=== PATIENT | male | born 1955 | race Caucasian/White ===

== ENCOUNTER 2021-03-24 13:47 | Outpatient (REF) | payer MEDICARE, SELFPAY ==
--- NOTE | ~2021-03-24 | US_ITS ---
EXAMINATION: US EXTRACRANIAL CAROTID DUPLEX, BILATERAL CLINICAL INFORMATION: CVA. Evaluate for carotid disease COMPARISON: None TECHNIQUE: Real-time ultrasound and Doppler techniques (integrating B-mode 2-D vascular images, Doppler spectral analysis and color-flow Doppler imaging) were utilized to interrogate the extracranial carotid arteries, the vertebral arteries and proximal subclavian arteries bilaterally. The degree of stenosis is determined by criteria similar to NASCET. FINDINGS: Right Side: 1. There is no atherosclerotic plaque seen in the bifurcation/proximal ICA region. 2. The common carotid artery PSV proximally is 109 cm/s and distally 90 cm/s. 3. The proximal internal carotid artery velocities are 72 cm/s systolic and 27 cm/s diastolic. 4. The proximal external carotid artery PSV is 104 cm/s. 5. The vertebral artery shows 31 flow. 6. The subclavian artery waveforms are normal. Left Side: 1. There is no atherosclerotic plaque seen in the bifurcation/proximal ICA region. 2. The common carotid artery PSV proximally is 99 cm/s and distally 94 cm/s. 3. The proximal internal carotid artery velocities are 88 cm/s systolic and 27 cm/s diastolic. 4. The proximal external carotid artery PSV is 110 cm/s. 5. The vertebral artery shows antegrade flow. 6. The subclavian artery waveforms are normal. US/US carotid duplex BI IMPRESSION: 1. RIGHT: No hemodynamically significant stenosis. 2. LEFT: No hemodynamically significant stenosis. 3. Normal antegrade flow seen in both vertebral arteries.
== END 2021-03-24 13:48 | disposition home or self-care (01) ==
LOC: HO.US 13:47
PROVIDERS: Visit Provider Internal Medicine
DX: Z86.73 Personal history of transient ischemic attack (TIA), and cerebral infarction without residual deficits (principal)
CPT/HCPCS: 93880

== ENCOUNTER 2021-04-19 08:25 | Outpatient (REF) | payer MEDICARE, SELFPAY ==
--- NOTE | ~2021-04-19 | XR_ITS ---
EXAMINATION: XR CERVICAL SPINE CLINICAL INFORMATION: Cervicalgia. COMPARISON: None TECHNIQUE: AP, lateral, open-mouth, and bilateral oblique views of the cervical spine. FINDINGS: Straightening of the normal cervical lordosis, which may be positional or related to muscular spasm. Minimal grade 1 anterolisthesis of C4 on C5. No acute fracture. No loss of vertebral body height. Loss of intervertebral disc height with endplate osteophytes at C5-C6 and C6-C7. Bilateral neural foraminal stenosis at these levels. Unremarkable prevertebral soft tissues. Normal atlantoaxial alignment. XR/XR cervical spine 4V IMPRESSION: Straightening of the normal cervical lordosis, which may be positional or related to muscular spasm. Minimal grade 1 anterolisthesis of C4 on C5. Moderate degenerative disc disease at C5-C6 and C6-C7 with bilateral neural foraminal stenosis.
[2021-04-19 09:03] LABS: MANUAL DIFF FLAG NO
[2021-04-19 09:07] LABS: Basophils Absolute Auto 0.1 X10*3/uL (0.0-0.2); Basophils Percent Auto 0.9 % (0-2); Eosinophils Absolute Auto 0.4 X10*3/uL (0.0-0.4); Eosinophils Percent Auto 5.4 % (0-4); Hematocrit 50.5 % (42-52); Hemoglobin 17.2 g/dl (14.0-18.0); Imm Gran Abs Auto 0.02 X10*3/uL (0.00-0.03); Imm Gran Pct Auto 0.3 % (0.0-0.4); Lymphocytes Absolute Auto 1.7 X10*3/uL (1.2-4.9); Lymphocytes Percent Auto 26.1 % (20-40); Mean Corpuscular HGB Conc 34.1 g/dl (31.0-36.0); Mean Corpuscular Hemoglobin 32.9 pg (27.0-33.0); Mean Corpuscular Volume 96.6 fL (80-98); Mean Platelet Volume 9.2 fL (9.4-12.4); Monocytes Absolute Auto 0.7 X10*3/uL (0.1-1.2); Monocytes Percent Auto 9.9 % (2-11); Neutrophils Absolute Auto 3.8 X10*3/uL (2.0-8.3); Neutrophils Percent Auto 57.4 % (45-73); Platelet Count 197 X10*3/uL (160-400); Red Blood Count 5.23 X10*6/uL (4.60-5.80); Red Cell Distribution Width 13.1 % (11.0-16.0); White Blood Count 6.7 X10*3/uL (4.8-10.8)
[2021-04-19 09:36] LABS: Alanine Aminotransferase 19 U/L (0-40); Albumin Level 4.8 g/dL (3.5-5.0); Alkaline Phosphatase 52 U/L (39-117); Anion Gap 14 (12-20); Aspartate Amino Transferase 18 U/L (5-37); Bilirubin Total 0.8 mg/dL (0.0-1.0); Blood Urea Nitrogen 18 mg/dL (9-16); Calcium 9.5 mg/dL (8.4-10.2); Carbon Dioxide 27 mmol/L (22-29); Chloride 105 mmol/L (96-108); Cholesterol 168 mg/dL; Estimated Glomerular Filt Rate > 60; Glucose Random 91 mg/dL (60-115); HDL Cholesterol 64 mg/dL; LDL Cholesterol Calculated 92 mg/dl; Potassium 4.8 mmol/L (3.3-5.1); Sodium 141 mmol/L (135-145); Total Protein 7.3 g/dL (6.5-8.0); Triglycerides 64 mg/dL
== END 2021-04-19 08:26 | disposition home or self-care (01) ==
LOC: HO.LAB 08:25
PROVIDERS: PCP Internal Medicine; Visit Provider Internal Medicine
DX: M54.2 Cervicalgia (principal); E78.00 Pure hypercholesterolemia, unspecified
CPT/HCPCS: 36415; 72050; 80053; 80061; 85025

== ENCOUNTER 2021-05-11 07:21 | Outpatient (REF) | payer MEDICARE, SELFPAY ==
--- NOTE | ~2021-05-11 | MR_ITS ---
EXAMINATION: MR CERVICAL SPINE WITHOUT CONTRAST CLINICAL INFORMATION: Neck pain. COMPARISON: None TECHNIQUE: MRI of the cervical spine was obtained using routine sequences without contrast. FINDINGS: VERTEBRAL BODIES AND PARASPINAL SOFT TISSUES: There is oeripsvx-cp-lbittk disc space narrowing with a retrosubluxation at the C5-C6 level. Endplate edematous changes are also present at this level, more significant on the right side. There are no compression fractures. The marrow signal is mildly heterogeneous. There are mild posterior subluxations at the C2-C3, C3-C4 and C6-C7 levels. Significant disc space narrowing also evident at C6-C7 with endplate spurring and minimal endplate edema. The paraspinal soft tissues are normal. The vertebral artery flow-voids are maintained. The imaged lung apices are clear. CERVICOMEDULLARY JUNCTION AND VISUALIZED POSTERIOR FOSSA: The craniovertebral junction and imaged portions of the brain appear normal. No cord signal abnormality or syrinx is seen. SPINAL LEVELS: C2-C3: Mild retrosubluxation and disc bulge with endplate spurring. No central canal stenosis or foraminal encroachment. C3-C4: Retrosubluxation and disc-osteophyte complex mildly impressing upon the ventral thecal sac. No central canal stenosis. Mild left foraminal narrowing and moderate right foraminal encroachment. C4-C5: Minimal annular bulge and endplate spurring without central canal stenosis. Moderate bilateral foraminal narrowing. C5-C6: Retrosubluxation and disc-osteophyte complex with mild central canal stenosis and severe right foraminal encroachment. Additional broad-based right paracentral disc protrusion with mild caudal migration slightly impressing upon the ventral cord. Moderate left foraminal narrowing. Exuberant endplate edema lateralized to the right side. C6-C7: Retrosubluxation and shallow disc-osteophyte complex with very mild central canal stenosis and severe bilateral foraminal encroachment. C7-T1: No disc pathology. No central canal stenosis or foraminal narrowing. MR/MR cervical spine wo con IMPRESSION: Moderate endplate edematous changes lateralized more so to the right side with a retrosubluxation and moderate degenerative disc disease at the C5-C6 level. Mild central canal stenosis and severe right foraminal narrowing. Broad-based right paracentral disc protrusion with mild caudal migration slightly impressing upon the ventral cord. Moderate left foraminal narrowing. Ifzl-om-zipaprjq spondylitic changes at the C3-C4 level with moderate right foraminal narrowing and a retrosubluxation. Moderate bilateral foraminal encroachment with endplate spurring and a mild disc bulge at the C4-C5 level. Severe bilateral foraminal narrowing with moderate spondylosis at the C6-C7 level.
== END 2021-05-11 07:22 | disposition home or self-care (01) ==
LOC: HO.MRI 07:21
PROVIDERS: Visit Provider Internal Medicine
DX: M54.2 Cervicalgia (principal)
CPT/HCPCS: 72141

== ENCOUNTER 2021-11-16 07:44 | Outpatient (REF) | payer MEDICARE, SELFPAY ==
[2021-11-16 08:06] LABS: MANUAL DIFF FLAG NO
[2021-11-16 08:26] LABS: Basophils Absolute Auto 0.1 X10*3/uL (0.0-0.2); Basophils Percent Auto 0.8 % (0-2); Eosinophils Absolute Auto 0.4 X10*3/uL (0.0-0.4); Eosinophils Percent Auto 6.4 % (0-4); Hematocrit 47.6 % (42.0-52.0); Hemoglobin 15.8 g/dl (14.0-18.0); Imm Gran Abs Auto 0.01 X10*3/uL (0.00-0.03); Imm Gran Pct Auto 0.2 % (0.0-0.4); Lymphocytes Absolute Auto 2.1 X10*3/uL (1.2-4.9); Lymphocytes Percent Auto 32.9 % (20-40); Mean Corpuscular HGB Conc 33.2 g/dl (31.0-36.0); Mean Corpuscular Hemoglobin 31.9 pg (27.0-33.0); Mean Platelet Volume 9.2 fL (9.4-12.4); Monocytes Absolute Auto 0.7 X10*3/uL (0.1-1.2); Monocytes Percent Auto 11.1 % (2-11); Neutrophils Percent Auto 48.6 % (45-73); Platelet Count 190 X10*3/uL (160-400); Red Blood Count 4.96 X10*6/uL (4.60-5.80); Red Cell Distribution Width 12.9 % (11.0-16.0); White Blood Count 6.2 X10*3/uL (4.8-10.8)
[2021-11-16 08:51] LABS: Alanine Aminotransferase 14 U/L (0-40); Albumin Level 4.1 g/dL (3.5-5.0); Alkaline Phosphatase 42 U/L (39-117); Anion Gap 9 (12-20); Aspartate Amino Transferase 19 U/L (5-37); Bilirubin Total 0.6 mg/dL (0.0-1.0); Blood Urea Nitrogen 21 mg/dL (9-16); Calcium 9.1 mg/dL (8.4-10.2); Carbon Dioxide 30 mmol/L (22-29); Chloride 106 mmol/L (96-108); Estimated Glomerular Filt Rate > 60; Glucose Random 93 mg/dL (60-115); Potassium 4.4 mmol/L (3.3-5.1); Sodium 141 mmol/L (135-145); Total Protein 6.4 g/dL (6.5-8.0)
== END 2021-11-16 07:45 | disposition home or self-care (01) ==
LOC: HO.LAB 07:44
PROVIDERS: PCP Internal Medicine; Visit Provider Internal Medicine
DX: M89.49 Other hypertrophic osteoarthropathy, multiple sites (principal); Z79.1 Long term (current) use of non-steroidal anti-inflammatories (NSAID)
CPT/HCPCS: 36415; 80053; 85025

== ENCOUNTER 2022-04-18 08:27 | Outpatient (REF) | payer MEDICARE, SELFPAY ==
[2022-04-18 08:39] LABS: MANUAL DIFF FLAG NO
[2022-04-18 08:58] LABS: Basophils Absolute Auto 0.1 X10*3/uL (0.0-0.2); Basophils Percent Auto 0.9 % (0-2); Eosinophils Absolute Auto 0.5 X10*3/uL (0.0-0.4); Eosinophils Percent Auto 6.6 % (0-4); Hematocrit 47.9 % (42.0-52.0); Hemoglobin 16.4 g/dl (14.0-18.0); Imm Gran Abs Auto 0.01 X10*3/uL (0.00-0.03); Imm Gran Pct Auto 0.1 % (0.0-0.4); Lymphocytes Percent Auto 28.6 % (20-40); Mean Corpuscular HGB Conc 34.2 g/dl (31.0-36.0); Mean Corpuscular Hemoglobin 32.2 pg (27.0-33.0); Mean Corpuscular Volume 94.1 fL (80.0-98.0); Mean Platelet Volume 9.3 fL (9.4-12.4); Monocytes Absolute Auto 0.8 X10*3/uL (0.1-1.2); Monocytes Percent Auto 11.5 % (2-11); Neutrophils Absolute Auto 3.6 x10*3/uL (2.0-8.3); Neutrophils Percent Auto 52.3 % (45-73); Platelet Count 193 X10*3/uL (160-400); Red Blood Count 5.09 X10*6/uL (4.60-5.80); Red Cell Distribution Width 12.9 % (11.0-16.0)
[2022-04-18 09:18] LABS: Alanine Aminotransferase 17 U/L (0-40); Albumin Level 4.4 g/dL (3.5-5.0); Alkaline Phosphatase 46 U/L (39-117); Anion Gap 15 (12-20); Aspartate Amino Transferase 19 U/L (5-37); Blood Urea Nitrogen 16 mg/dL (9-16); Calcium 8.8 mg/dL (8.4-10.2); Carbon Dioxide 26 mmol/L (22-29); Chloride 105 mmol/L (96-108); Cholesterol 209 mg/dL; Estimated Glomerular Filt Rate > 60; Glucose Random 94 mg/dL (60-115); HDL Cholesterol 53 mg/dL; LDL Cholesterol Calculated 145 mg/dl; Potassium 4.6 mmol/L (3.3-5.1); Sodium 141 mmol/L (135-145); Total Protein 6.8 g/dL (6.5-8.0); Triglycerides 57 mg/dL
[2022-04-18 09:57] LABS: Appearance Urine CLEAR; Color Urine YELLOW; Glucose Urine UA NEG (NEG); Leukocyte Esterase Urine NEG (NEG); Nitrite Urine NEG (NEG); PH 7.5 (5.0-8.0); Urine Blood NEG (NEG); Urine Ketones NEG (NEG); Urine Protein NEG (NEG-TRACE)
== END 2022-04-18 08:28 | disposition home or self-care (01) ==
LOC: HO.LAB 08:27
PROVIDERS: PCP Internal Medicine; Visit Provider Internal Medicine
DX: E78.00 Pure hypercholesterolemia, unspecified (principal); D12.6 Benign neoplasm of colon, unspecified; R10.32 Left lower quadrant pain; R35.1 Nocturia
CPT/HCPCS: 36415; 80053; 80061; 81003; 84443; 85025

== ENCOUNTER 2022-10-27 10:42 | Outpatient (REF) | payer MEDICARE, SELFPAY ==
--- NOTE | ~2022-10-27 | XR_ITS ---
EXAMINATION: XR THORACIC SPINE CLINICAL INFORMATION: Back pain COMPARISON: None TECHNIQUE: 3 views of the thoracic spine were obtained. FINDINGS: There is no fracture or bone destruction seen and the vertebral alignment is normal. There is no disc space narrowing. There is no abnormality of the paraspinal soft tissues. XR/XR thoracic spine 3V IMPRESSION: Unremarkable examination.
== END 2022-10-27 10:43 | disposition home or self-care (01) ==
LOC: HO.XRAY 10:42
PROVIDERS: PCP Internal Medicine; Visit Provider Internal Medicine
DX: M54.6 Pain in thoracic spine (principal); G89.29 Other chronic pain
CPT/HCPCS: 72072

== ENCOUNTER 2023-06-27 07:10 | Outpatient (REF) | payer MEDICARE, SELFPAY ==
--- NOTE | ~2023-06-27 | XR_ITS ---
Examination: Pre-MRI screening orbits. Clinical indication history of foreign body in orbits. TECHNIQUE: 3 views. FINDINGS: There is no radiopaque foreign body seen in the orbits or in the facial soft tissues. Visualized paranasal sinuses and mastoid air cells are well-aerated. The soft tissues are normal. XR/XR pre mri screening IMPRESSION: No radiopaque metallic foreign body seen.
--- NOTE | ~2023-06-27 | MR_ITS ---
EXAMINATION: MR THORACIC SPINE WITHOUT CONTRAST CLINICAL INFORMATION: History of fracture of thoracic spine. COMPARISON: Plain films of the thoracic spine 10/27/2022. MRI scan of the cervical spine 05/11/2021. TECHNIQUE: MRI of the thoracic spine was obtained using routine sequences without contrast. FINDINGS: VERTEBRAL BODIES AND PARASPINAL STRUCTURES: There is anatomic alignment of the vertebral bodies. There is multilevel narrowing of intervertebral disc height with loss of signal throughout the thoracic spine. There are mild degenerative endplate contour changes with minimal edematous signal at T9-T10. There are Schmorl's nodes at multiple levels. There is minimal loss of vertebral body height of T8, similar compared to the prior study. There are a few foci of hyperintense T1 and T2 signal in multiple vertebrae, consistent with hemangiomata or focal fat. Overall, marrow signal is homogenous. The paravertebral and visualized posterior thoracic structures are unremarkable. There is a 2.9 cm cyst in the right lobe of the liver. There are cysts in the right kidney. The conus is at the level of L1. Accounting for artifact, spinal cord signal appears normal. SPINAL LEVELS: There are multilevel degenerative changes of the costovertebral junctions. Posterior disc contours appear normal throughout the thoracic spine. There is no spinal cord compression or central stenosis. The neural foramina are patent. MR/MR thoracic spine wo con IMPRESSION: 1. There are no acute fractures or subluxations. There are multilevel degenerative changes of the costovertebral junctions. 2. There is no significant spondylosis. There is no spinal cord compression or central stenosis. The neural foramina are patent. 3. There are cysts in the right lobe of the liver and in the right kidney.
== END 2023-06-27 07:11 | disposition home or self-care (01) ==
LOC: HO.MRI 07:10
PROVIDERS: PCP Internal Medicine; Visit Provider Internal Medicine
DX: M54.6 Pain in thoracic spine (principal)
CPT/HCPCS: 72146

== ENCOUNTER 2023-10-06 06:27 | Day surgery (SDC) | payer MEDICARE, SELFPAY ==
[2023-10-04 14:13] VITALS: BMI 23.2
--- NOTE | 2023-10-05 09:04 | P.CONAN_ITS ---
Documented by User: Solange Bella NP 10/05/23 09:04 HPI - Anesthesia Eval Consult details Narrative: 68yo M for Colonoscopy [facility] Past Medical History Medical History Renal calculi Surgical History Surgical History H/O colonoscopy Hx of nasal polypectomy Hx of rotator cuff surgery Hx of left inguinal hernia repair Social History Social History Patient Tobacco Use Status: Never used Tobacco Are you DNR?: No Advance Directives: No Advance Directives Information Provided: Yes Nutrition Risks: No Nutritional Risk Meds Allergies Allergy/AdvReac Type Severity Reaction Status Date / Time Seasonal Allergies Allergy Unknown Unknown Verified 10/04/23 14:11 Home Medications Medication Instructions Recorded Confirmed Last Taken Type fluticasone propionate 50 1 spray intranasal DAILY 10/04/23 10/04/23 Unknown History mcg/actuation nasal spray,suspension multivitamin 1 tab PO DAILY 10/04/23 10/04/23 Unknown History zinc acetate 25 mg (zinc) capsule 25 mg PO DAILY 10/04/23 10/04/23 Unknown History Exam Height,Weight and Vital Signs: Height 5 ft 8.5 in Weight 70.307 kg Assessment and Plan Assessment Anesthesia Assessment: Chart Reviewed Documented by User: Esther Taylor MD 10/06/23 08:20 [facility] Past Medical History Medical History Renal calculi Family History Family history of problems with anesthesia: No Surgical History Surgical History H/O colonoscopy Hx of nasal polypectomy Hx of rotator cuff surgery Hx of left inguinal hernia repair History of Problems with Anesthesia: No Social History Social History Patient Tobacco Use Status: Never used Tobacco Are you DNR?: No Advance Directives: No Advance Directives Information Provided: Yes Nutrition Risks: No Nutritional Risk Meds Allergies Allergy/AdvReac Type Severity Reaction Status Date / Time Seasonal Allergies Allergy Unknown Unknown Verified 10/04/23 14:11 Home Medications Medication Instructions Recorded Confirmed Last Taken Type fluticasone propionate 50 1 spray intranasal DAILY 10/04/23 10/04/23 Unknown History mcg/actuation nasal spray,suspension multivitamin 1 tab PO DAILY 10/04/23 10/04/23 Unknown History zinc acetate 25 mg (zinc) capsule 25 mg PO DAILY 10/04/23 10/04/23 Unknown History Exam Height,Weight and Vital Signs: Height 5 ft 8.5 in Weight 70.307 kg Vital Signs Temp Pulse Resp BP Pulse Ox O2 Del Method 10/06/23 07:06 98.1 F 66 18 138/89 96 Room Air Airway Mallampati Class: II TM Dist: >3cm Neck ROM: Full Loose/Missing/Broken Teeth: Yes (Missing tooth top right back) Heart: RRR Lungs: CTAB Assessment and Plan Assessment Anesthesia Assessment: Anesthesia Plan Discussed Final Anesthetic Review Family History of Problems with Anesthesia: No History of Problems with Anesthesia: No NPO: Yes ASA Class: I Final Preanesthetic Review: No Changes in Pt Med Stat, Meds/Allgs Chart Reviewed, Consent Obtained/Reviewed and Anes Risks/Benef Reviewed Patient Risk: Low Procedure Risk: Low Assessment/Block/Sedation in SS: Assess/Block/Sedation-SS Anesthetic Plan Anesthetic Plan: MAC: and TIVA Disposition: Standard PACU
[2023-10-06 06:38] VITALS: BMI 22.7
[2023-10-06] MEDS: Lactated Ringers 1,000 ML 100 ML IVCONT (06:46)
[2023-10-06 07:06] VITALS: BP 138/89; PULSE 66; RESP 18; TEMP 36.7; O2SAT 96
[2023-10-06 08:37] VITALS: BP 105/67; PULSE 52; RESP 16; TEMP 36.1; O2SAT 99
--- NOTE | 2023-10-06 08:40 | P.BOP_ITS ---
Brief Operative Note Date of Service: 10/06/23 Pre-op diagnosis: Screening Post-op diagnosis: other (Diverticulosis) Procedure: Colonoscopy to the cecum and TI Surgeon: Leobardo Rai MD Anesthesia: MAC Was an Electrical Sign Wirer used for this Procedure?: No Estimated blood loss (mL): 0 Pathology: none sent Condition: stable Disposition: PACU
[2023-10-06 08:52] VITALS: BP 123/68; PULSE 52; RESP 16; TEMP 36.6; O2SAT 99
--- NOTE | 2023-10-06 10:11 | OP_ITS ---
DATE OF SERVICE: 10/06/2023 SURGEON: Leobardo Rai MD INDICATIONS: The patient presents for evaluation of colorectal cancer screening and family history of colorectal cancer and polyps, as well as his personal history of tubular adenomas of the colon. Full consent has been obtained from him for this, including risks of bleeding and perforation. PREOPERATIVE DIAGNOSIS: POSTOPERATIVE DIAGNOSIS: PROCEDURE PERFORMED: Colonoscopy to the cecum and terminal ileum. ESTIMATED BLOOD LOSS: COMPLICATIONS: ANESTHESIA: Monitored anesthesia care. ASSISTANTS: SPECIMENS: PREOPERATIVE DIAGNOSES: Colorectal cancer screening, personal history of tubular adenoma of the colon, family history of colon cancer. POSTOPERATIVE DIAGNOSES: Colorectal cancer screening, personal history of tubular adenoma of the colon, family history of colon cancer, mild sigmoid diverticulosis, small internal hemorrhoids. DESCRIPTION OF PROCEDURE: The patient was placed in the left lateral decubitus position. The digital rectal exam revealed no abnormalities. The Olympus video pediatric colonoscope was entered into the rectum and advanced easily to the cecum. Once in the cecum, I did identify normal-appearing cecal pouch with appendiceal orifice and a normal-appearing ileocecal valve. The terminal ileum was cannulated and appeared normal. The scope was withdrawn back in the colon. The entire cecum and ileocecal valve appeared normal. The scope was slowly withdrawn assessing all mucosal surfaces carefully. Preparation was excellent. I did not visualize any sign of polyps, colitis, nor angiodysplasia. There was a mild amount of sigmoid diverticulosis. In the rectum, scope was retroflexed visualizing internal hemorrhoids, but no other pathology. The rectal mucosa appeared normal. Scope was straightened and withdrawn from the patient. He tolerated the procedure well and was returned to the recovery area in stable condition. IMPRESSION: 1. Mild diverticulosis. 2. Internal hemorrhoids. PLAN: I would recommend a repeat colonoscopy in 5 years for further surveillance. He will otherwise see me on a p.r.n. basis. Leobardo Rai MD [facility] / [phone]
== END 2023-10-06 09:26 | disposition home or self-care (01) ==
PROVIDERS: PCP Internal Medicine; Visit Provider Internal Medicine
PROC: 0DJD8ZZ Inspection of Lower Intestinal Tract, Via Natural or Artificial Opening Endoscopic (ICD-10-PCS; CPT 45378; principal; 2023-10-06 07:30)
DX: Z12.11 Encounter for screening for malignant neoplasm of colon (principal); Z80.0 Family history of malignant neoplasm of digestive organs; Z86.010 Personal history of colon polyps; K57.30 Diverticulosis of large intestine without perforation or abscess without bleeding; K64.8 Other hemorrhoids; Z79.899 Other long term (current) drug therapy; Z87.442 Personal history of urinary calculi
CPT/HCPCS: G0105; J2704

== ENCOUNTER 2024-04-23 07:30 | Outpatient (REF) | payer MEDICARE, SELFPAY ==
[2024-04-23 07:59] LABS: MANUAL DIFF FLAG NO
[2024-04-23 08:34] LABS: Basophils Absolute Auto 0.1 X10*3/uL (0.0-0.2); Basophils Percent Auto 0.7 % (0-2); Eosinophils Absolute Auto 0.5 X10*3/uL (0.0-0.4); Hematocrit 48.9 % (42.0-52.0); Hemoglobin 17.1 g/dl (14.0-18.0); Imm Gran Abs Auto 0.02 X10*3/uL (0.00-0.03); Imm Gran Pct Auto 0.3 % (0.0-0.4); Lymphocytes Absolute Auto 1.9 X10*3/uL (1.2-4.9); Lymphocytes Percent Auto 27.6 % (20-40); Mean Corpuscular Hemoglobin 33.3 pg (27.0-33.0); Mean Corpuscular Volume 95.1 fL (80.0-98.0); Mean Platelet Volume 9.3 fL (9.4-12.4); Monocytes Absolute Auto 0.7 X10*3/uL (0.1-1.2); Monocytes Percent Auto 10.5 % (2-11); Neutrophils Absolute Auto 3.6 x10*3/uL (2.0-8.3); Neutrophils Percent Auto 53.9 % (45-73); Platelet Count 195 X10*3/uL (160-400); Red Blood Count 5.14 X10*6/uL (4.60-5.80); Red Cell Distribution Width 12.8 % (11.0-16.0); White Blood Count 6.8 X10*3/uL (4.8-10.8)
[2024-04-23 08:46] LABS: Appearance Urine Clear; Color Urine Yellow; Glucose Urine UA Negative (Negative); Leukocyte Esterase Urine Negative (Negative); Nitrite Urine Negative (Negative); PH 5.5 (5.0-9.0); Urine Blood Negative (Negative); Urine Ketones Negative (Negative); Urine Protein Negative (Neg-Trace)
[2024-04-23 08:57] LABS: Bacteria Urine None Seen (None Seen); Hyaline Casts Urine 0-2 /LPF (0-2); RBC Urine 0-2 /HPF (0-2); Squamous Epithelial Cell Urine 0-2 /HPF (0-2); WBC Urine 0-5 /HPF (0-5)
== END 2024-04-23 07:31 | disposition home or self-care (01) ==
LOC: HO.LAB 07:30
PROVIDERS: PCP Internal Medicine; Visit Provider Internal Medicine
DX: Z00.00 Encounter for general adult medical examination without abnormal findings (principal); E78.00 Pure hypercholesterolemia, unspecified; R35.1 Nocturia
CPT/HCPCS: 36415; 80053; 80061; 81001; 84443; 85025

== ENCOUNTER 2024-05-16 06:37 | Outpatient (REF) | payer MEDICARE, SELFPAY ==
[2024-05-16 06:51] LABS: MANUAL DIFF FLAG NO
[2024-05-16 07:20] LABS: Basophils Percent Auto 0.7 % (0-2); Eosinophils Absolute Auto 0.5 X10*3/uL (0.0-0.4); Eosinophils Percent Auto 8.4 % (0-4); Hematocrit 47.4 % (42.0-52.0); Hemoglobin 16.5 g/dl (14.0-18.0); Imm Gran Abs Auto 0.02 X10*3/uL (0.00-0.03); Imm Gran Pct Auto 0.3 % (0.0-0.4); Lymphocytes Absolute Auto 1.8 X10*3/uL (1.2-4.9); Lymphocytes Percent Auto 30.5 % (20-40); Mean Corpuscular HGB Conc 34.8 g/dl (31.0-36.0); Mean Corpuscular Hemoglobin 32.9 pg (27.0-33.0); Mean Corpuscular Volume 94.6 fL (80.0-98.0); Mean Platelet Volume 9.2 fL (9.4-12.4); Monocytes Absolute Auto 0.8 X10*3/uL (0.1-1.2); Monocytes Percent Auto 13.1 % (2-11); Neutrophils Absolute Auto 2.8 x10*3/uL (2.0-8.3); Platelet Count 182 X10*3/uL (160-400); Red Blood Count 5.01 X10*6/uL (4.60-5.80)
[2024-05-16 08:00] LABS: Alanine Aminotransferase 19 U/L (0-40); Albumin Level 4.3 g/dL (3.5-5.0); Alkaline Phosphatase 45 U/L (39-117); Anion Gap 12 (12-20); Aspartate Amino Transferase 21 U/L (5-37); Bilirubin Total 0.6 mg/dL (0.0-1.0); Blood Urea Nitrogen 18 mg/dL (9-16); Calcium 9.3 mg/dL (8.4-10.2); Carbon Dioxide 27 mmol/L (22-29); Chloride 107 mmol/L (96-108); Cholesterol 209 mg/dL (<200); Estimated Glomerular Filt Rate > 60; Glucose Random 94 mg/dL (60-115); HDL Cholesterol 58 mg/dL (>40); LDL Cholesterol Calculated 141 mg/dL (<100); Potassium 4.7 mmol/L (3.3-5.1); Sodium 141 mmol/L (135-145); Total Protein 6.7 g/dL (6.5-8.0); Triglycerides 54 mg/dL (<150)
[2024-05-16 08:08] LABS: TSH reflex Free T4 2.44 uIU/mL (0.32-4.0)
[2024-05-16 09:25] LABS: Appearance Urine Clear; Color Urine Yellow; Glucose Urine UA Negative (Negative); Leukocyte Esterase Urine Negative (Negative); Nitrite Urine Negative (Negative); Urine Blood Negative (Negative); Urine Ketones Negative (Negative); Urine Protein Negative (Neg-Trace)
[2024-05-16 09:28] LABS: Bacteria Urine None Seen (None Seen); Hyaline Casts Urine 0-2 /LPF (0-2); RBC Urine 0-2 /HPF (0-2); Squamous Epithelial Cell Urine 0-2 /HPF (0-2); WBC Urine 0-5 /HPF (0-5)
== END 2024-05-16 06:38 | disposition home or self-care (01) ==
LOC: HO.LAB 06:37
PROVIDERS: PCP Internal Medicine; Visit Provider Internal Medicine
DX: Z00.00 Encounter for general adult medical examination without abnormal findings (principal); E78.00 Pure hypercholesterolemia, unspecified; R35.1 Nocturia
CPT/HCPCS: 36415; 80053; 80061; 81001; 84443; 85025

== ENCOUNTER 2024-10-18 09:12 | Outpatient (REF) | payer MEDICARE, SELFPAY ==
--- NOTE | ~2024-10-18 | XR_ITS ---
CLINICAL HISTORY: THORACIC SPINE PAIN 3 views thoracic spine Comparison: CR/SR - XR THORACIC SPINE 3V - 10/27/22 11:33 EST Findings: Normal alignment. No acute fractures or dislocation. Mild multilevel spondylosis with diffuse osteophytosis, facet arthropathy and degenerative disc disease. IMPRESSION: No acute findings. This document has been electronically signed by: Amandeep Carbajal MD on 10/19/2024 05:30:28
--- NOTE | ~2024-10-18 | XR_ITS ---
CLINICAL HISTORY: RIGHT KNEE PAIN 4 view right knee Comparison: None Findings: Osteopenia. No acute fracture. Bipartite patella. No joint effusion. Anterior soft tissue swelling with a 1.6 mm linear soft tissue focus anterior to the tibia, nonspecific. Mild joint space narrowing in the medial and patellofemoral compartments IMPRESSION: 1. No acute fracture. This document has been electronically signed by: Amandeep Carbajal MD on 10/19/2024 05:31:29
--- NOTE | ~2024-10-18 | XR_ITS ---
CLINICAL HISTORY: RIGHT HIP PAIN 2 view right hip Comparison: None Findings: No acute fracture or dislocation. No significant arthritic change. The soft tissues are unremarkable. IMPRESSION: No acute findings. This document has been electronically signed by: Amandeep Carbajal MD on 10/19/2024 05:32:28
== END 2024-10-18 09:13 | disposition home or self-care (01) ==
LOC: HO.XRAY 09:12
PROVIDERS: PCP Internal Medicine; Visit Provider Internal Medicine
DX: M25.551 Pain in right hip (principal); M25.561 Pain in right knee; G89.29 Other chronic pain; M54.6 Pain in thoracic spine
CPT/HCPCS: 72072; 73502; 73564

== ENCOUNTER → 2024-10-18 09:19 | Outpatient (BNV) | payer MEDICARE, SELFPAY | PROVIDERS: PCP Internal Medicine; Visit Provider Radiology Diagnostic Radiology | DX: M25.561 Pain in right knee (principal); M54.6 Pain in thoracic spine; M25.551 Pain in right hip | CPT/HCPCS: 72072; 73502; 73564 ==

== ENCOUNTER 2024-11-14 18:13 | Outpatient (REF) | payer MEDICARE, SELFPAY ==
--- NOTE | ~2024-11-14 | MR_ITS ---
EXAMINATION: MRI RIGHT KNEE WITHOUT CONTRAST HISTORY: CHRONIC PAIN COMPARISON: Correlation is made with plain films of the right knee dated 10/18/2024. TECHNIQUE: Coronal T1 and fat-suppressed proton density, sagittal proton density and fat-suppressed proton density, and axial fat suppressed T2 weighted MR images of the right knee were obtained. FINDINGS: Bone marrow: Bone marrow signal intensity is normal. There is a bipartite patella. Joint effusion: There is no joint effusion. Snow's cyst: There is no Snow's cyst. Articular cartilage: There is mild thinning of the patellar cartilage. Muscles/soft tissues: The visualized muscles demonstrate normal signal intensity. Anterior cruciate ligament: There is evidence of mucoid degeneration of the anterior cruciate ligament. A 7 mm cystic structure is seen within the proximal portion of the ACL which may represent a ganglion cyst. There is no evidence of a tear. Posterior cruciate ligament: Intact Medial collateral ligament: Intact Lateral collateral ligament: Intact Medial meniscus: Intact Lateral meniscus: Intact Flexor mechanism: The popliteus, gastrocnemius, and hamstring tendons are intact. Quadriceps tendon: Intact Patellar tendon: Intact Patellar retinacula: Intact MR/MR knee RT wo con IMPRESSION: 1. Mild thinning of the patellar cartilage. 2. Mucoid degeneration of the ACL with a probable associated 7 mm ganglion cyst. No evidence of an ACL tear. Electronically signed by: Leobardo Emery MD 11/15/2024 07:28 AM EDT
--- NOTE | ~2024-11-14 | MR_ITS ---
EXAMINATION: MR LUMBAR SPINE WITHOUT CONTRAST CLINICAL INFORMATION: Chronic midline low back pain. COMPARISON: None. TECHNIQUE: Multiplanar multisequence MR imaging of the lumbar spine was done without IV contrast. Examination was performed on a 1.5 Aleisha Siemens magnet, utilizing standard sequences. FINDINGS: CORONAL ALIGNMENT: -Trace left convex scoliosis, possibly positional. SAGITTAL ALIGNMENT: - Normal lordosis. -There is a 2 mm anterolisthesis of L4 on L5. LUMBOSACRAL JUNCTION: -Normal. There are 5 ydj-xoh-ukqniec lumbar-type vertebral bodies. VERTEBRAL BODIES/BONE MARROW: -No compression deformities or gross vertebral body marrow edema identified. There is subtle bone marrow edema in the right L4-5 pedicles and facet joints, indicating stress response. -Of note, bone marrow signal is somewhat heterogeneous on T1, findings most likely on the basis of hematopoietic marrow. No definite suspicious bone lesion. DISCS: -Mild loss of disc signal and height L3-4, L4-5, and to lesser degree L5-S1. -Disc superior to L3 are normal in signal and height. SPINAL CANAL: -No abnormal developmental findings. CONUS MEDULLARIS: -Terminates at superior endplate of L1. Morphology and signal is normal. INTRADURAL NERVE ROOTS: - Within normal limits. Axial Disc Space Images: T12-L1: Normal. L1-L2: Normal. L2-L3: Minimal hypertrophic facet changes. No central canal or neural foraminal narrowing. L3-L4: Shallow concentric disc bulge extending into both foraminal. Mild hypertrophic degenerative facet changes with mild posterior ligamentous thickening/infolding. Findings result in mild central canal narrowing, mild subarticular recess narrowing, and mild bilateral neural foraminal narrowing. L4-L5: Mild disc uncovering secondary to anterolisthesis. There is a diffuse concentric disc bulge, with a superimposed small central extrusion of disc material. There are moderate bilateral hypertrophic facet changes, and mild posterior ligamentous infolding/thickening. Findings result in moderate to severe central canal stenosis, severe bilateral subarticular recess stenosis right greater than left, with probable impingement of the right greater than left traversing L5 roots. There is moderate to severe bilateral neural foraminal encroachment. There is contact of the left greater than right exiting L4 roots without definite impingement. L5-S1: No central canal or neural foraminal narrowing. Normal appearing facets. IMAGED SI JOINTS: -Mild degenerative arthritis. PARAVERTEBRAL AND INCLUDED EXTRASPINAL SOFT TISSUES: -There is a small parapelvic cyst measuring 1.6 x 1.0 cm in the right kidney. The aorta is normal in caliber. -The paraspinous and paravertebral soft tissues appear normal. MR/MR lumbar spine wo con IMPRESSION: 1. Moderate spondylosis relatively confined to L4-5, where there is moderate to severe central canal stenosis, severe right greater than left subarticular recess stenosis, and moderate to severe bilateral neural foraminal encroachment. See above for details. 2. There is mild edema within the right L4-5 pedicles and facet joint, indicating stress response. No additional bone marrow edema. 3. Somewhat heterogeneous bone marrow signal on T1-weighted imaging, nonspecific, but most likely on the basis of active/hematopoietic bone marrow. Electronically signed by: Isidro Painter MD 11/15/2024 12:06 PM EDT
--- NOTE | ~2024-11-14 | MR_ITS ---
FINDINGS: MR THORACIC SPINE WITHOUT CONTRAST CLINICAL INFORMATION: Chronic back pain, midline. COMPARISON: None TECHNIQUE: Multiplanar multisequence MR imaging of the thoracic spine was done without IV contrast. Examination was performed on a 1.5 Aleisha Siemens magnet, utilizing standard sequences. FINDINGS: ALIGNMENT: There is a minimal right convex scoliosis, apex at T10. There is a normal thoracic kyphosis. There is anatomical alignment without subluxation. VERTEBRAL BODIES AND BONE MARROW: There is no gross bone marrow edema or abnormal infiltrating bone marrow signal. Of note, mild heterogeneity of the bone marrow signal on T1-weighted imaging is nonspecific but most likely on the basis of active/hematopoietic marrow. There are small hemangiomata in T7, T8, and T9. There is no compression deformity. DISCS: Mild loss of disc height and signal throughout the central aspect, spanning T3-T10. Otherwise, discs appear grossly normal. SPINAL CORD: The spinal cord is normal in caliber and signal throughout. There is no cord impingement. The conus terminates at L1 and is normal in signal and morphology. PARASPINAL SOFT TISSUES: Normal appearance. Aorta is normal in caliber. There are no pleural effusions. There is a lobular T2 hyperintense cyst in the right hepatic lobe measuring 2.7 x 3.4 cm. AXIAL DISC SPACE LEVELS: C7-T1: No central canal or neural foraminal narrowing. Normal facets. T1-T2: No central canal or neural foraminal narrowing. Normal facets. T2-T3: No central canal or neural foraminal narrowing. Normal facets. T3-T4: No central canal or neural foraminal narrowing. Mild facet degeneration. T4-T5: No central canal or neural foraminal narrowing. Mild facet degeneration. T5-T6: No central canal or neural foraminal narrowing. Mild facet degeneration. T6-T7: No central canal or neural foraminal narrowing. Mild facet degeneration. T7-T8: No central canal or neural foraminal narrowing. Mild facet degeneration. T8-T9: No central canal or neural foraminal narrowing. Mild facet degeneration. T9-T10: No central canal or neural foraminal narrowing. Mild facet degeneration. T10-T11: No central canal or neural foraminal narrowing. Mild facet degeneration. T11-T12: No central canal or neural foraminal narrowing. Normal facets. T12-L1: No central canal or neural foraminal narrowing. Mild facet degeneration. MR/MR thoracic spine wo con IMPRESSION: 1. Mild spondylosis of the thoracic spine. There is no significant central canal or neural foraminal narrowing at any level. 2. The cord is normal in caliber and signal throughout. 3. Somewhat heterogeneous bone marrow signal on T1-weighted imaging, nonspecific, but most likely on the basis of active/hematopoietic bone marrow. Electronically signed by: Isidro Painter MD 11/15/2024 12:47 PM EDT
--- OUTSIDE RECORDS SUMMARY | 2024-11-14 19:32 | XMS_ITS ---
Author Organization [facility] Address [address] [place] [id number] Care Team Providers Care Change Control Analyst Name Role Phone Fei GARCIA, Virgil Primary Care Provider Leobardo Trevino [phone] REASON FOR VISIT screening colonoscopy Encounters Encounter Location Date Provider Diagnosis [facility] [address] [place] [id number] 08/29/2023 Leobardo Rai Plan Of Treatment No Information Progress Notes * CASTILLO MACHELLE Ivey JrDOB:[birth year] (69 yo M)Acc No.[id number]:08/29/2023 Progress Notes Patient:?ANNA MACHELLE Ivey Jr Provider:?Leobardo Rai MD :1955???Age:67 Y???Sex:Male Donavan e:08/29/2023 Address:[address] [place], [place] [id number] Pcp:Virgil Enamorado MD Subjective: * Chief Complaints: * ???1. Screening colonoscopy. * Medical History:? Objective: * Vitals:? Assessment: Plan: * Treatment: * * The named appointment provid er may or may not be the originator of this progress note, and it is not deemed complete until electronically signed by the appointment provider. Sign off status: Pending * Provider:?Leobardo Rai MD Date:? 023 Generated for Printi ng/Faxing/eTransmitting on:?11/14/2024 07:31 PM EDT
--- OUTSIDE RECORDS SUMMARY | 2024-11-14 19:32 | XMS_ITS | Patient Health Record ---
Author Organization [facility] Address [address] [place] [id number] Care Team Providers Care Vp Human Resources Name Role Phone Virgil Enamorado MD Primary Care Provider Leobardo Trevino Unavailable [phone] Allergies Allergen (clinical drug ingredient) Drug/Non Drug Allergy documented on EMR Reaction Allergy Type Onset Date Status seasonal (uncoded) Unknown Allergy A ctive Reason For Referral No Information Medications Medication SIG (Take, Route, Fr equency, Duration) Notes Start Date End Date Status Flonase 50 MCG/ACT 1 spray in each nost ril Nasally Once a day Active Multivitamin Adults - as directed Orally 3 Active Zinc 25 MG 1 tablet Orally Once a day for 30 day(s) 07/05/2023 Active Immunizations Vaccine Route Administration Date Status Comme nts Influenza Unknown 07/05/2023 Refused Social History Alcohol Screen Question Answer Notes Did you have a drink contain ing alcohol in the past year? Yes How often did you have a dri nk containing alcohol in the past year? 2 to 3 times a week (3 points) How many drinks did you have on a typical day when you were drinking in the past year? 1 or 2 drinks (0 point) How often did you have 6 or more drinks on one occasion in the past year? Never (0 point) Points 3 Interpretation Negative Section Notes: Nonsmoker; occasional alcoho l Nonsmoker; occasional alcoho l Nonsmoker; occasional alcoho l Problems Problem Type SNOMED Code ICD Code Onset Dates Problem Status W/U Status Risk Notes Problem 800460742 Encounter for screening for malignant neoplasm of colon (Z12.11) Active confirmed Problem History of polyp of colon (situation) (136246166) Personal history of colonic polyps (Z86.010) Active confirmed Problem Diverticular disease of colon (012711271) Diverticulosis of large intestine without perforation or abscess without bleeding (K57.30) Active confirmed Problem 842236417910494 Preprocedural examination (Z01.818) Active confirmed Problem 690209899 Family history o f colon cancer (Z80.0) Active confirmed Problem 825098069 Hx of adenomatou s colonic polyps (Z86.010) Active confirmed Plan Of Treatment Future Test Test Name Order Date COLONOSCOPY 11/30/2012 COLONOSCOPY 05/03/2018 COLONOSCOPY 07/05/2023 Insurance Providers Payer Name Payer Address Payer Phone Subscriber Number Group Number Insured Name Patient Relationship to Insured Coverage Start Date Coverage End Date MEDICARE OF [place] [address] [place] [id number] [phone] [id number] MACHELLE CASTILLO Self - patient is the insured [employer] CLAIMS [address] [place] [phone] [id number] MACHELLE CASTILLO Self - patient is the insured Medical (General) History Medical History History ICD Code 1.5 cm Tubular adenoma removed in 2000 Colonoscopies 2002, 05/2007, and 2012 were negative for adenomas--just diverticulosis and internal hemorrhoids Kidney stones Denies [place],DM,CVA,Lung disease,renal dise ase Colonoscopy 05/2018 with a small tubular adenoma removed Surgical History Surgery Date(Month/Year) Left inguinal hernia repair Rotator cuff tear repairs bilaterally Nasal polypectomy
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
--- OUTSIDE RECORDS SUMMARY | 2024-11-14 19:32 | XMS_ITS ---
Author Organization [facility] Address [address] [place] [address] Care Team Providers Care Sales Office Assistant Name Role Phone Virgil Enamorado MD Primary Care Provider Leobardo Trevino Unavailable [phone] REASON FOR VISIT screening, hx polyps,fam hx colon ca Problems Problem Type SNOMED Code ICD Code Onset Dates Problem Status W/U Status Risk Notes Problem History of polyp of colon (situation) (637656216) Personal history of colonic polyps (Z86.010) Active confirmed Problem Diverticular disease of colon (418103453) Diverticulosis of large intestine without perforation or abscess without bleeding (K57.30) Active confirmed Encounters Encounter Location Date Provider Diagnosis [facility] [address] [place], [place] [id number] 10/06/2023 Leobardo Rai Encounter for scre ening colonoscopy Z12.11 ; Personal history of colonic polyps Z86.010 ; Family history of colon cancer Z80.0 ; FH: colon polyps Z83.719 ; Diverticulosis of large intestine without perforation or abscess without bleeding K57.30 and Other hemorrhoids K64.8 Assessments Encounter Date Diagnosis (ICD Code) Assessment Notes Treatment Notes Treatment Clinical Notes Section Notes 10/06/2023 Encounter for screening colonoscopy (ICD-10 - Z12.11) 10/06/2023 Personal history of colonic polyps (ICD-10 - Z86.010) 10/06/2023 Family history of colon cancer (ICD-10 - Z80.0) 10/06/2023 FH: colon polyps (ICD-10 - Z83.719) 10/06/2023 Diverticulosis of large intestine without perforation or abscess without bleeding (ICD-10 - K57.30) 10/06/2023 Other hemorrhoids (ICD-10 - K64.8) Plan Of Treatment No Information Progress Notes * MACHELLE CASTILLO JrDOB:[birth year] (69 yo M)Acc No.[id number]:10/06/2023 COLON WITH MAC Patient:?MACHELLE CASTILLO Jr Provider:?Leobardo Rai MD :1955???Age:68 Y???Sex:Male Donavan e:10/06/2023 Address:[address] [place] [address], , [place] [address] Pcp:Virgil Enamorado MD Subjective: * Chief Complaints: * ???1. Screening, hx polyps,f am hx colon ca. * Medical History:? Objective: * Vitals:? Assessment: * Assessment: 1.?Encounter for screening c olonoscopy - Z12.11 (Primary)???2.?Personal history of colonic polyps - Z86.010???3.?Family history of colon cancer - Z80.0???4.?FH: colon polyps - Z83.719???5.?Diverticulosis of large intestine without perforation or abscess without bleeding - K57.30???6.?Other hemorrhoids - K64.8??? Plan: * Treatment: * Procedure Codes:?G0105 COLOR EC CANCR SCR; COLNSCPY HI RISK, 0529F INTRVL 3+YRS PTS CLNSCP DOCD, Modifiers: 8P , 0528F RCMND FLW-UP 10 YRS DOCD, Modifiers: 1P * Preventive Medicine:? ??PETE Screening:?Colonoscopy?Was interval between colonoscopies three years or more??Yes,?Was last colonoscopy performed three or more years ago??Yes.? * * The named appointment provid er may or may not be the originator of this progress note, and it is not deemed complete until electronically signed by the appointment provider. Sign off status: Pending * Provider:?Leobardo Rai MD Date:? 024 Generated for Edin desir/Myles/eTransmitting on:?11/14/2024 07:32 PM EDT
== END 2024-11-14 18:14 | disposition home or self-care (01) ==
LOC: HO.MRI 18:13
PROVIDERS: PCP Internal Medicine; Visit Provider Internal Medicine
DX: M54.50 Low back pain, unspecified (principal); G89.29 Other chronic pain; M54.6 Pain in thoracic spine; M25.561 Pain in right knee
CPT/HCPCS: 72146; 72148; 73721

== ENCOUNTER → 2024-11-14 18:56 | Outpatient (BNV) | payer MEDICARE, SELFPAY | PROVIDERS: PCP Internal Medicine; Visit Provider Radiology Diagnostic Radiology | DX: M47.816 Spondylosis without myelopathy or radiculopathy, lumbar region (principal); M48.061 Spinal stenosis, lumbar region without neurogenic claudication; M54.6 Pain in thoracic spine; M25.561 Pain in right knee | CPT/HCPCS: 72146; 72148; 73721 ==

== ENCOUNTER 2025-05-08 06:12 | Outpatient (REF) | payer MEDICARE, SELFPAY ==
--- OUTSIDE RECORDS SUMMARY | 2025-05-08 06:16 | XMS_ITS | Patient Health Record ---
Author Organization [facility] Address [address] [place] [id number] Care Team Providers Care Street Cleaning Equipment Operator Name Role Phone Virgil Enamorado MD Primary Care Provider Leobardo Trevino Unavailable [phone] Allergies Allergen (clinical drug ingredient) Drug/Non Drug [...] Problem Status W/U Status Risk Notes Problem [id number] Encounter for screening for malignant neoplasm of colon (Z12.11) Active confirmed Problem History of polyp of colon (situation) (768957909) Personal history of colonic polyps (Z86.010) Active confirmed Problem Diverticular disease of colon (992359155) Diverticulosis of large intestine without perforation or abscess without bleeding (K57.30) Active confirmed Problem [id number] Preprocedural examination (Z01.818) Active confirmed Problem 202456054 Family history o f colon cancer (Z80.0) Active confirmed Problem 464578248 Hx of adenomatou s colonic polyps (Z86.010) Active confirmed Plan Of Treatment Future Test Test Name Order Date COLONOSCOPY 11/30/2012 COLONOSCOPY 05/03/2018 COLONOSCOPY 07/05/2023 Insurance Providers Payer Name Payer Address Payer Phone Subscriber Number Group Number Insured Name Patient Relationship to Insured Coverage Start Date Coverage End Date MEDICARE OF [place] [address] [place] [id number] [phone] [id number] MACHELLE CASTILLO Self - patient is the insured [employer] CLAIM[employer] [address] [place] [address] [id number] MACHELLE CASTILLO Self - patient is the insured Medical (General) History Medical History History ICD Code 1.5 cm Tubular adenoma removed in 2000 Colonoscopies 2002, 05/2007, and 2012 were negative for adenomas--just diverticulosis and internal hemorrhoids Kidney stones Denies PR,DM,CVA,Lung disease,renal dise ase Colonoscopy 05/2018 with a small tubular adenoma removed Surgical History Surgery Date(Month/Year) Left inguinal hernia repair Rotator cuff tear repairs bilaterally Nasal polypectomy
--- OUTSIDE RECORDS SUMMARY | 2025-05-08 06:16 | XMS_ITS | Patient Health Record ---
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 Role Phone Virgil Enamorado MD Primary Care Provider Sonu Monson Unavailable [phone] Allergies Allergen (clinical drug ingredient) Drug/Non Drug Allergy documented on EMR Reaction Allergy Type Onset Date Status Adhesive Tape Unknown Drug Allergy Act alexx Reason For Referral No Information Medications Medication SIG (Take, Route, Frequency, Duration) Notes Start Date End Date Status Vitamin E Active Advil 200 MG Orally PRN Active Social History Tobacco Use: Social History Observation Description Date Details (start date - stop date) Never Smoker NA - NA Tobacco Use/Smoking Question Answer Notes Are you a: nonsmoker Additional Findings: Tobacco Non-User Current no n-smoker Alcohol Screen Question Answer Notes Did you have a drink containing alcohol in the p ast year? Yes Points 0 Interpretation Negative Tobacco use other than smoking: Question Answer Notes Are you an other tobacco user? No Problems Problem Type SNOMED Code ICD Code Onset Dates Problem Status W/U Status Risk Notes Problem Plantar fascial fibromatosis (45921373) Plantar fascial fibromatosis (M72.2) Active confirmed Plan Of Treatment No Information Insurance Providers Payer Name Payer Address Payer Phone Subscriber Number Group Number Insured Name Patient Relationship to Insured Coverage Start Date Coverage End Date Medicare National [employer] [address] [place] [address] [id number] Felice Velez Self - patient is the insured [address] [facility] [address] [place] [address] [id number] Felice Velez Self - patient is the insured Medical (General) History Medical History History ICD Code Back,Hip,and Knee pain Measles Mumps Chicken pox Joint implants/screws Raynauds syndrome chronic sinusitis Surgical History Surgery Date(Month/Year) rotator cuff tear repair 06/21/2017, 03/05 sinus surgery 08/25/2017 Hernia Repair 12/2009
[2025-05-08 06:34] LABS: MANUAL DIFF FLAG NO
[2025-05-08 07:53] LABS: Hematocrit 45.7 % (42.0-52.0); Hemoglobin 16.0 g/dl (14.0-18.0); Imm Gran Abs Auto 0.01 X10*3/uL (0.00-0.03); Imm Gran Pct Auto 0.2 % (0.0-0.4); Lymphocytes Absolute Auto 1.8 X10*3/uL (1.2-4.9); Mean Corpuscular HGB Conc 35.0 g/dl (31.0-36.0); Mean Corpuscular Hemoglobin 32.8 pg (27.0-33.0); Mean Corpuscular Volume 93.6 fL (80.0-98.0); NRBC Abs Auto 0.000 X10*3/uL (0.0-0.012); NRBC Pct Auto 0.0 /100WBC (0.0-0.2); Platelet Count 194 X10*3/uL (160-400); Red Blood Count 4.88 X10*6/uL (4.60-5.80); White Blood Count 6.5 X10*3/uL (4.8-10.8)
[2025-05-08 08:08] LABS: Hemoglobin A1C 137.1265 umol/L; Total Hemoglobin (HGBA1C) 4066.3123 umol/L
[2025-05-08 08:26] LABS: Appearance Urine Clear; Glucose Urine UA Negative (Negative); PH 5.5 (5.0-9.0); Specific Gravity - Urine 1.020 (1.005-1.025)
[2025-05-08 08:31] LABS: Alanine Aminotransferase 22 U/L (0-40); Albumin Level 4.6 g/dL (3.5-5.0); Alkaline Phosphatase 55 U/L (39-117); Anion Gap 9 (12-20); Aspartate Amino Transferase 26 U/L (5-37); Blood Urea Nitrogen 19 mg/dL (9-16); Calcium 9.1 mg/dL (8.4-10.2); Carbon Dioxide 31 mmol/L (22-29); Chloride 106 mmol/L (96-108); Cholesterol 221 mg/dL (<200); Estimated Glomerular Filt Rate > 60; HDL Cholesterol 54 mg/dL (>40); Potassium 4.5 mmol/L (3.3-5.1); Sodium 141 mmol/L (135-145); Total Protein 6.7 g/dL (6.5-8.0); Triglycerides 102 mg/dL (<150)
== END 2025-05-08 06:13 | disposition home or self-care (01) ==
LOC: HO.LAB 06:12
PROVIDERS: PCP Internal Medicine; Visit Provider Internal Medicine
DX: R35.1 Nocturia (principal); R73.01 Impaired fasting glucose; E78.00 Pure hypercholesterolemia, unspecified
CPT/HCPCS: 36415; 80053; 80061; 81003; 83036; 84443; 85025